=== PATIENT | female | born 2000 | race Caucasian/White ===

== ENCOUNTER 2022-06-03 08:15 | Emergency (ER) | payer MEDICAID ==
[~2022-06-03] VITALS: Ht 165.1 cm; Wt 57.0 kg
[2022-06-03 08:20] VITALS: BP 115/69
[2022-06-03] MEDS ORDERED: ACETAMINOPHEN 325MG TABLET PO ONE (09:00)
== END 2022-06-03 10:09 | disposition home or self-care (01) ==
LOC: ER 08:15
DX: M25.511 Pain in right shoulder (principal); M25.521 Pain in right elbow; V49.40XA Driver injured in collision with unspecified motor vehicles in traffic accident, initial encounter; Y93.89 Activity, other specified; Y92.89 Other specified places as the place of occurrence of the external cause; Y99.8 Other external cause status
CPT/HCPCS: 73030; 73070; 99284